=== PATIENT | female | born 1970 | race Asian ===

== ENCOUNTER 2016-12-04 13:26 | Inpatient (IN) | payer OTHER ==
[~2016-12-04] VITALS: Ht 167.6 cm; Wt 73.3 kg
[~2016-12-04 13:26] MED LIST: ATENOLOL25 MG PO; FERROUS SULFAT325 M2 PO; LAC PO; MAC100 PO; VITAMIN C500 M4 PO
[2016-12-04 14:21] LABS: BASOPHIL % 0.1 % (0-2)
[2016-12-04 14:25] LABS: RED CELL DISTRIBUTION WIDTH 20.8 % (11.5-14.5)
[2016-12-04 14:30] LABS: PLATELET COUNT 406 x10^3mcL (130-400)
[2016-12-04 14:36] LABS: CALCIUM 8.5 mg/dL (8.5-10.1); CARBON DIOXIDE 25.1 mmol/L (21-32); CHLORIDE SERUM 108 mmol/L (98-107); CREATININE SERUM 0.7 mg/dL (0.6-1.0); GFR1 > 60 mL/min; GLUCOSE SERUM 123 mg/dL (74-106); POTASSIUM SERUM 4.2 mmol/L (3.5-5.1); SODIUM SERUM 144 mmol/L (136-145)
[2016-12-04 14:41] LABS: ALBUMIN 3.4 g/dL (3.4-5.0); ALKALINE PHOSPHATASE 58 U/L (46-116); ALT/SGPT 22 U/L (14-59); AST/SGOT 12 U/L (15-37); BILIRUBIN TOTAL 0.32 mg/dL (0.20-1.00); CHOLESTEROL 197 mg/dL (<200); HDL CHOLESTEROL 54 mg/dL (40-60); TOTAL PROTEIN, SERUM 7.7 g/dL (6.4-8.2)
[2016-12-04 15:36] LABS: ovalocyte/elliptocyte 1+; rbc morphology (normal/abnorm) ABNORMAL (NORMAL); schistocyte (helmet cell) 1+
[2016-12-04 16:06] LABS: PHOSPHOROUS 3.8 mg/dL (2.5-4.9)
[2016-12-04 16:16] LABS: T3 TOTAL 1.12 ng/mL
[2016-12-04 16:17] LABS: FREE THYROXINE INDEX 3.7 ug/dL (1.4-4.5); T4(THYROXINE) 11.5 ug/dL (4.7-13.3)
[2016-12-04 16:49] VITALS: BP 124/80
[2016-12-04 17:16] VITALS: BP 124/80
[2016-12-04 17:18] LABS: FREE T4 1.02 ng/dL (0.76-1.46)
[2016-12-04 21:32] VITALS: BP 138/83
[2016-12-05 02:54] LABS: UA SPECIFIC GRAVITY 1.015 (1.005-1.035); microscopic required? YES; urine erythrocyte NEGATIVE (NEGATIVE)
[2016-12-05 03:36] LABS: AMPHETAMINE QUAL UR NONE DETECTED (NEG <=1000)
[2016-12-05 06:22] VITALS: BP 127/70
[2016-12-05 06:44] LABS: BASOPHIL % 0.1 % (0-2); PLATELET COUNT 371 x10^3mcL (130-400)
[2016-12-05 07:04] LABS: CHLORIDE SERUM 108 mmol/L (98-107); CREATININE SERUM 0.6 mg/dL (0.6-1.0); GFR1 > 60 mL/min; GLUCOSE SERUM 120 mg/dL (74-106); MAGNESIUM 2.1 mg/dL (1.8-2.4); SODIUM SERUM 142 mmol/L (136-145)
[2016-12-05 07:08] LABS: RED CELL DISTRIBUTION WIDTH 21.4 % (11.5-14.5)
[2016-12-05 09:56] VITALS: BP 121/75
[2016-12-05 12:12] LABS: rbc morphology (normal/abnorm) ABNORMAL (NORMAL)
[2016-12-05 12:13] LABS: ovalocyte/elliptocyte 1+
[2016-12-05 14:08] VITALS: BP 114/72
[2016-12-05 17:28] VITALS: BP 127/80
[2016-12-05 20:00] VITALS: BP 125/74
[2016-12-05 21:47] VITALS: BP 124/76
[2016-12-06 05:37] VITALS: BP 128/76
[2016-12-06 09:12] VITALS: BP 134/75
[2016-12-06] MEDS ORDERED: FERROUS SULFAT325 M2 PO (09:49)
[2016-12-06] MEDS ORDERED: VITAMIN C500 M4 PO (09:50)
[2016-12-06 09:56] LABS: CALCIUM 8.3 mg/dL (8.5-10.1); CARBON DIOXIDE 21.2 mmol/L (21-32); CHLORIDE SERUM 109 mmol/L (98-107); CREATININE SERUM 0.7 mg/dL (0.6-1.0); GFR1 > 60 mL/min; GLUCOSE SERUM 188 mg/dL (74-106); PHOSPHOROUS 2.6 mg/dL (2.5-4.9); POTASSIUM SERUM 3.7 mmol/L (3.5-5.1); SODIUM SERUM 142 mmol/L (136-145)
[2016-12-06 10:11] LABS: BASOPHIL % 0.7 % (0-2); PLATELET COUNT 321 x10^3mcL (130-400)
[2016-12-06 10:12] VITALS: BP 134/75
[2016-12-06 10:16] LABS: RED CELL DISTRIBUTION WIDTH 21.4 % (11.5-14.5)
[2016-12-06 10:42] LABS: rbc morphology (normal/abnorm) ABNORMAL (NORMAL)
[2016-12-06 10:43] LABS: ovalocyte/elliptocyte 1+; tear drop cell (dacryocyte) 1+
== END 2016-12-06 11:05 | disposition home or self-care (01) | DRG 812 ==
LOC: ED 13:26 → DU 15:38
PROVIDERS: Emergency Medicine; Family Medicine; ADMIT Family Medicine
DX: D50.0 Iron deficiency anemia secondary to blood loss (chronic) (principal); E83.51 Hypocalcemia; E87.8 Other disorders of electrolyte and fluid balance, not elsewhere classified; D47.3 Essential (hemorrhagic) thrombocythemia; N92.0 Excessive and frequent menstruation with regular cycle; Z68.26 Body mass index [BMI] 26.0-26.9, adult
CPT/HCPCS: 83880; 84439; J2916; J7030; Q0092